=== PATIENT | male | born 1945 | race Caucasian/White ===

== ENCOUNTER 2017-06-26 11:11 | Emergency (ER) | payer OTHER ==
[2017-06-26 11:26] VITALS: TEMP 97.7; BMI 25.1
--- NOTE | 2017-06-26 12:26 | PDOC ---
History of Present Illness - General History Source: Patient Exam Limitations: No Limitations - History of Present Illness Initial Comments: 06/26/17 12:31 The patient is a 72 year old female with a significant PMH of HTN, hyperlipidemia, diabetes, CAD (s/p 4x stents), and past MO who presents to the emergency department with right wrist pain s/p mechanical fall approximately yesterday morning. The patient reports slipping and falling yesterday morning and landing on his right wrist, after which he developed pain and swelling. He reports going to Urgent Care and receiving a sling but was told to come to the ED for X-rays. He reports taking Tylenol to minimal relief. The patient denies hitting his head or LOC. The patient denies chest pain, shortness of breath, headache and dizziness. Denies fever, chills, nausea, vomit, diarrhea and constipation. Denies dysuria, frequency, urgency and hematuria. Allergies: NKA Past surgical history: Cardiac stent placement x4. Unspecified back and wrist orthopedic surgery. Social history: Former smoker. No reported alcohol or drug use. PCP: Dr. Roe Knapp <John Wu - Last Filed: 06/26/17 12:31> <Bridget Echeverria - Last Filed: 06/29/17 08:11> - General Chief Complaint: Injury Stated Complaint: FALL/ RT ARM PAIN Time Seen by Provider: 06/26/17 11:55 Past History <John Wu - Last Filed: 06/26/17 12:31> - Past Medical History Anemia: No Asthma: No Cancer: No Cardiac Disorders: Yes ([place] w/ 4 stents) COPD: No CHF: No Diabetes: Yes GI Disorders: No Disorders: No HTN: Yes Hypercholesterolemia: Yes Liver Disease: No Thyroid Disease: No - Surgical History Abdominal Surgery: No Cardiac Surgery: Yes (stent 03/2015) Lung Surgery: No Orthopedic Surgery: Yes (Back, wrist) - Immunization History Immunization Up to Date: Yes - Suicide/Smoking/Psychosocial Hx Smoking History: Never smoked Have you smoked in the past 12 months: No Number of Cigarettes Smoked Daily: 3 If you are a former smoker, when did you quit?: 12yrs Information on smoking cessation initiated: No 'Breaking Loose' booklet given: 03/28/15 Hx Alcohol Use: No Drug/Substance Use Hx: No Substance Use Type: None Hx Substance Use Treatment: No <Bridget Echeverria - Last Filed: 06/29/17 08:11> - Past Medical History Allergies/Adverse Reactions: Allergies Allergy/AdvReac Type Severity Reaction Status Date / Time No Known Allergies Allergy Verified 06/26/17 11:19 Home Medications: Ambulatory Orders Amlodipine Besylate 5 mg PO DAILY 11/25/15 Aspirin [ASA -] 81 mg PO DAILY 11/25/15 Atorvastatin Ca [Lipitor] 80 mg PO HS 11/25/15 Insulin (Novolog 70/30) [Novolog Mix 70/30 Vial] 20 ml SQ HS 11/25/15 Insulin Aspart Prot/Insuln Asp [Novolog Mix 70-30 Flexpen Syrn] 15 unit SQ AM Metoprolol Succinate [Toprol Xl -] 100 mg PO DAILY 11/25/15 Lisinopril [Prinivil] 5 mg PO DAILY 06/26/17 Prasugrel Hydrochloride [Effient -] 5 mg PO DAILY 06/26/17 Tramadol HCl 50 mg PO Q6H PRN #12 tablet MDD 4 tabs 06/26/17 Review of Systems - Review of Systems Able to Perform ROS?: Yes Comments:: 06/26/17 12:31 GENERAL/CONSTITUTIONAL: No fever or chills. No weakness. HEAD, EYES, EARS, NOSE AND THROAT: No change in vision. No ear pain or discharge. No sore throat. CARDIOVASCULAR: No chest pain or shortness of breath. RESPIRATORY: No cough, wheezing, or hemoptysis. GASTROINTESTINAL: No nausea, vomiting, diarrhea or constipation. GENITOURINARY: No dysuria, frequency, or change in urination. MUSCULOSKELETAL: (+) Right wrist pain and swelling. No neck or back pain. SKIN: No rash NEUROLOGIC: No headache, vertigo, loss of consciousness, or change in strength/ sensation. ENDOCRINE: No increased thirst. No abnormal weight change. HEMATOLOGIC/LYMPHATIC: No anemia, easy bleeding, or history of blood clots. ALLERGIC/IMMUNOLOGIC: No hives or skin allergy. <John Wu - Last Filed: 06/26/17 12:31> *Physical Exam - Vital Signs Last Vital Signs Temp Pulse Resp BP Pulse Ox 97.7 F 87 16 154/94 100 06/26/17 11:19 06/26/17 11:19 06/26/17 11:19 06/26/17 11:19 06/26/17 11:19 <John Wu - Last Filed: 06/26/17 12:31> - Vital Signs Last Vital Signs Temp Pulse Resp BP Pulse Ox 97.7 F 87 16 154/94 100 06/26/17 11:19 06/26/17 11:19 06/26/17 11:19 06/26/17 11:19 06/26/17 11:19 - Physical Exam Comments: GENERAL: Awake, alert, and fully oriented, in no acute distress HEAD: No signs of trauma EYES: PERRLA, EOMI, sclera anicteric, conjunctiva clear ENT: Auricles normal inspection, hearing grossly normal, nares patent, oropharynx clear without exudates. Moist mucosa EXTREMITIES: R wrist with edema, tenderness to the dorsal surface. Dec ROM due to pain. +Pain in the anatomic snuffbox. Remainder of extremities with normal range of motion, no edema. No clubbing or cyanosis. No cords, erythema, or tenderness NEUROLOGICAL: Cranial nerves II through XII grossly intact. Normal speech, normal gait SKIN: Warm, Dry, normal turgor, no rashes or lesions noted. <Bridget Echeverria - Last Filed: 06/29/17 08:11> Procedures - Splinting Splint Location: Right: Wrist Pre-Proc Neuro Vasc Exam: normal Hand-Made Type: orthoglass Splint Type: Yes: Volar Post-Proc Neuro Vasc Exam: normal Errol Bandage: 3" Sling: Yes Complications: No <Bridget Echeverria - Last Filed: 06/29/17 08:11> Medical Decision Making - Medical Decision Making Pt splinted for comfort. Recommended f/u in 1 week for repeat XR to r/o occult fx. <Bridget Echeverria - Last Filed: 06/29/17 08:11> *DC/Admit/Observation/Transfer - Attestations Scribe Attestion: 06/26/17 12:31 Documentation prepared by John Wu, acting as medical physics professor for Bridget Echeverria MD. <John Wu - Last Filed: 06/26/17 12:31> - Discharge Dispostion Admit: No <Bridget Echeverria - Last Filed: 06/29/17 08:11> Diagnosis at time of Disposition: Right wrist sprain Qualifiers: Encounter type: initial encounter Qualified Code(s): S63.501A - Unspecified sprain of right wrist, initial encounter - Discharge Dispostion Disposition: HOME Condition at time of disposition: Stable - Prescriptions Prescriptions: Tramadol HCl 50 mg PO Q6H PRN #12 tablet MDD 4 tabs PRN Reason: Pain - Referrals Referrals: Roe Knapp MD [Primary Care Provider] - - Patient Instructions Printed Discharge Instructions: DI for Wrist Sprain, How to Take Care of Your Splint Additional Instructions: Follow up with your physician, as you may need another x-ray in 1 week. Use splint as needed for pain. - Post Discharge Activity
[2017-06-26] MEDS ORDERED: traMADol HCL 50 MG TABLET PO ONE (12:29)
[2017-06-26] MEDS ORDERED: traMADol HCL 50 MG TABLET ONE (12:31)
[2017-06-26 14:33] VITALS: BP 142/75; PULSE 68
== END 2017-06-26 14:34 | disposition home or self-care (01) ==
LOC: JER 11:11
DX: E11.9 Type 2 diabetes mellitus without complications (principal); I25.10 Atherosclerotic heart disease of native coronary artery without angina pectoris; Z87.891 Personal history of nicotine dependence; I10 Essential (primary) hypertension; Z95.5 Presence of coronary angioplasty implant and graft; E78.00 Pure hypercholesterolemia, unspecified; S63.501A Unspecified sprain of right wrist, initial encounter; W18.39XA Other fall on same level, initial encounter; Y93.89 Activity, other specified; Y92.9 Unspecified place or not applicable; I25.2 Old myocardial infarction
CPT/HCPCS: 73090-TC-RT; 73110-TC-RT; 73130-TC-RT; 99282-25

== ENCOUNTER 2018-04-28 00:02 | Emergency (ER) | payer OTHER, BC | END 2018-04-28 01:34 | disposition left against medical advice (07) | LOC: JER 00:02 | DX: Z53.21 Procedure and treatment not carried out due to patient leaving prior to being seen by health care provider (principal) ==

== ENCOUNTER 2018-07-16 14:25 | Emergency (ER) | payer OTHER, BC ==
[2018-07-16 14:33] VITALS: BMI 25.0
[2018-07-16] MEDS ORDERED: ONDANSETRON 4 MG/2 ML VIAL IVPB ONE (15:00)
[2018-07-16] MEDS ORDERED: morphine SULFATE 4 MG/ML VIAL ONE ×2 (15:00→17:23)
[2018-07-16] MEDS ORDERED: morphine CARPU-JECT 4 MG/1 ML DISP.SYRIN IVPUSH ONE ×3 (15:00→17:22)
[2018-07-16] MEDS ORDERED: ONDANSETRON 4 MG/2 ML VIAL ONE ×2 (15:01→17:23)
--- NOTE | 2018-07-16 15:04 | PDOC ---
History of Present Illness - General Chief Complaint: Injury Stated Complaint: LEG PAIN Time Seen by Provider: 07/16/18 15:04 History Source: Patient Exam Limitations: No Limitations - History of Present Illness Initial Comments: 07/16/18 15:17 73 year old male with PMH HTN, IDDM, HLD, [place] with 4 stents (x2.5 years ago), on unknown blood thinner BIBA to ED for left leg pain s/p trip and fall on ice today. Pt denied prodromal symptoms. Pt denied head injury, LOC. Pt admitted to vomiting 4 times since the event. PCP: [facility] Past History - Past Medical History Allergies/Adverse Reactions: Allergies Allergy/AdvReac Type Severity Reaction Status Date / Time No Known Allergies Allergy Verified 07/16/18 14:31 Home Medications: Ambulatory Orders Amlodipine Besylate 5 mg PO DAILY 11/25/15 Aspirin [ASA -] 81 mg PO DAILY 11/25/15 Atorvastatin Ca [Lipitor] 80 mg PO HS 11/25/15 Insulin (Novolog 70/30) [Novolog Mix 70/30 Vial] 20 ml SQ HS 11/25/15 Insulin Aspart Prot/Insuln Asp [Novolog Mix 70-30 Flexpen Syrn] 15 unit SQ AM Metoprolol Succinate [Toprol Xl -] 100 mg PO DAILY 11/25/15 Lisinopril [Prinivil] 5 mg PO DAILY 06/26/17 Prasugrel Hydrochloride [Effient -] 5 mg PO DAILY 06/26/17 Tramadol HCl 50 mg PO Q6H PRN #12 tablet MDD 4 tabs 06/26/17 Anemia: No Asthma: No Cancer: No Cardiac Disorders: Yes ([place] w/ 4 stents) COPD: No CHF: No Diabetes: Yes GI Disorders: No Disorders: No HTN: Yes Hypercholesterolemia: Yes Liver Disease: No Thyroid Disease: No - Surgical History Abdominal Surgery: No Cardiac Surgery: Yes (stent 03/2015) Lung Surgery: No Orthopedic Surgery: Yes (Back, wrist) - Immunization History Immunization Up to Date: Yes - Suicide/Smoking/Psychosocial Hx Smoking History: Never smoked Have you smoked in the past 12 months: No Number of Cigarettes Smoked Daily: 3 If you are a former smoker, when did you quit?: 12yrs 'Breaking Loose' booklet given: 03/28/15 Hx Alcohol Use: No Drug/Substance Use Hx: No Substance Use Type: None Hx Substance Use Treatment: No Review of Systems - Review of Systems Able to Perform ROS?: Yes Comments:: 07/16/18 15:24 General: denied fever, chills, night sweats, generalized weakness. HEENT: denied sore throat, rhinorrhea, ear pain. Neck: denied neck pain. Heart: denied chest pain, palpitations, syncope, diaphoresis. Respiratory: denied shortness of breath, cough, sputum production, hemoptysis. Abdomen: denied abdominal pain, nausea, vomiting, diarrhea, constipation, blood in stool. : denied dysuria, increased urinary frequency, hematuria, urinary incontinence , flank pain. Back: denied back pain. Musculoskeletal: admitted to left leg pain. Neurological: denied headache, dizziness, numbness, tingling, weakness. Skin: denied rash, laceration, abrasion. *Physical Exam - Vital Signs Last Vital Signs Temp Pulse Resp BP Pulse Ox 98.1 F 66 18 166/78 100 07/16/18 14:32 07/16/18 14:32 07/16/18 14:32 07/16/18 14:32 07/16/18 14:32 - Physical Exam Comments: 07/16/18 15:24 Constitutional: Well-nourished, Well-developed, appearing stated age. HEENT: head is normocephalic, atraumatic. no scalp hematomas. no facial bone tenderness. EOMI. PERRLA. Neck: supple. Full ROM. Heart: regular rhythm. no murmurs, rubs or gallops. Lungs: clear to auscultation bilaterally. no crackles, rhonchi or wheezing. no stridor. Abdomen: soft, nontender. normal bowel sounds. no rebound, guarding, masses. Back: no midline c-spine, t-spine or L-spine tendereness to palpation. no paraspinal tenderness. Extremities: left leg shortened and externally rotated. pain to palpation of left upper anterior leg. Peripheral pulses intact. No lower extremity edema. capillary refill <2 seconds bilateral LE. equal warmth to bilateral LE. Neurological: CN 2-12 grossly intact. Moves all four extremities. Psych: awake, alert, oriented x3. Follows commands. Answers questions appropriately. Moderate Sedation - Procedure Monitoring Vital Signs: Procedure Monitoring Vital Signs Temperature 98.1 F 07/16/18 14:32 Pulse Rate 66 07/16/18 14:32 Respiratory Rate 18 07/16/18 14:32 Blood Pressure 166/78 07/16/18 14:32 O2 Sat by Pulse Oximetry (%) 100 07/16/18 14:32 ED Treatment Course - LABORATORY CBC & Chemistry Diagram: 07/16/18 15:00 07/16/18 15:00 Medical Decision Making - Medical Decision Making 07/16/18 15:26 73 year old male with above PMH presented to ED for left leg pain s/p slip and fall on ice today. Pt denied head injury but has vomited 4X since the event. Initial Vital Signs Temp Pulse Resp BP Pulse Ox 98.1 F 66 18 166/78 100 07/16/18 14:32 07/16/18 14:32 07/16/18 14:32 07/16/18 14:32 07/16/18 14:32 Afebrile. No tachycardia. No tachypnea. Mild hypertension. No hypoxia on room air. o Labs ordered: CBC, CMP, coags, CK, troponin c Imaging ordered: left hip XR g Medications ordered: morphine 4 mg, zofran 4 mg EKG performed at 1450: rate 60, regular rhythm, left axis, normal intervals, no acute ST changes. 07/16/18 15:38 Pt reported increasing pain. g Medications ordered: morphine 2 mg 07/16/18 15:43 CBC WBC 9.6 K/mm3 (4.0-10.0) 07/16/18 15:00 RBC 4.43 M/mm3 (4.00-5.60) 07/16/18 15:00 Hgb 13.6 GM/dL (11.7-16.9) 07/16/18 15:00 Hct 39.1 % (35.4-49) 07/16/18 15:00 MCV 88.1 fl (80-96) 07/16/18 15:00 MCH 30.7 pg (25.7-33.7) 07/16/18 15:00 MCHC 34.8 g/dl (32.0-35.9) 07/16/18 15:00 RDW 13.8 % (11.9-15.9) 07/16/18 15:00 Plt Count 163 K/MM3 (134-434) 07/16/18 15:00 MPV 10.1 fl (7.5-11.1) 07/16/18 15:00 Absolute Neuts (auto) 6.1 K/mm3 (1.5-8.0) 07/16/18 15:00 Neutrophils % 63.5 % (42.8-82.8) 07/16/18 15:00 Lymphocytes % 25.6 % (8-40) D 07/16/18 15:00 Monocytes % 9.3 % (3.8-10.2) 07/16/18 15:00 Eosinophils % 0.8 % (0-4.5) 07/16/18 15:00 Basophils % 0.8 % (0-2.0) 07/16/18 15:00 Nucleated RBC % 0 % (0-0) 07/16/18 15:00 No leukocytosis. No anemia. CMP Sodium 138 mmol/L (136-145) 07/16/18 15:00 Potassium 4.2 mmol/L (3.5-5.1) 07/16/18 15:00 Chloride 107 mmol/L (98-107) 07/16/18 15:00 Carbon Dioxide 22 mmol/L (21-32) 07/16/18 15:00 Anion Gap 9 MMOL/L (8-16) 07/16/18 15:00 BUN y 42 mg/dL (7-18) H 07/16/18 15:00 Creatinine y 1.8 mg/dL (0.55-1.3) H 07/16/18 15:00 Creat Clearance w eGFR 37.38 (>60) 07/16/18 15:00 Random Glucose 177 mg/dL (74-106) H 07/16/18 15:00 Calcium 8.5 mg/dL (8.5-10.1) 07/16/18 15:00 Total Bilirubin 0.3 mg/dL (0.2-1) 07/16/18 15:00 AST 24 U/L (15-37) 07/16/18 15:00 ALT 27 U/L (13-61) 07/16/18 15:00 Alkaline Phosphatase 76 U/L (45-117) 07/16/18 15:00 Total Protein 7.5 g/dl (6.4-8.2) 07/16/18 15:00 Albumin 3.8 g/dl (3.4-5.0) 07/16/18 15:00 Cr at baseline. No electrolyte abnormalities. No transaminitis. 07/16/18 16:[address] head report: no acute intracranial pathology. sinus disease. 07/16/18 17:15 c CXR report: no acute intrathoracic pathology c CT cervical spine report: no acute fracture c Left hip/femur XR: no acute fracture/dislocation Pt clinically in pain and displays possible femur fracture. upper left leg tense. c Imaging ordered: CT lower extremity with contrast o - Cr 1.8 g - Normal saline ordered 07/16/18 17:22 Pt vomiting at bedside with increasing pain after examination. g Medications ordered: zofran 4 mg, morphine 4 mg o CK 555 o CKMB 5.6 g - Normal saline ordered prior 07/16/18 18:53 I spoke with ortho condenser tube tender, Dr. Husain, who stated he viewed the CT images. He stated he believes there is a hematoma to the left upper leg, and no fracture. No vascular condenser tube tender, pt will need to be transferred. r [place] needle used - compartment pressure = 8. Pt signed out to Dr. Lopez - Pending CT report of left extremity. - Pending transfer *DC/Admit/Observation/Transfer Diagnosis at time of Disposition: Left leg swelling, Left leg injury, Hematoma of left lower extremity - Discharge Dispostion Disposition: TRANSFER ACUTE CARE/OTHER HOSP Condition at time of disposition: Guarded - Referrals Referrals: Luis Fernando Araya MD [Primary Care Provider] - - Patient Instructions - Post Discharge Activity
[2018-07-16 15:15] LABS: BASO % 0.8 % (0-2.0); EOS % 0.8 % (0-4.5); HEMATOCRIT 39.1 % (35.4-49); HEMOGLOBIN 13.6 GM/dL (11.7-16.9); LYMPH % 25.6 % (8-40); MCH 30.7 pg (25.7-33.7); MCHC 34.8 g/dl (32.0-35.9); MEAN CELL VOLUME 88.1 fl (80-96); MEAN PLT VOLUME 10.1 fl (7.5-11.1); MONO % 9.3 % (3.8-10.2); NEUT % 63.5 % (42.8-82.8); PLATELET COUNT 163 K/MM3 (134-434); RBC 4.43 M/mm3 (4.00-5.60); RDW 13.8 % (11.9-15.9); WHITE BLOOD COUNT 9.6 K/mm3 (4.0-10.0)
[2018-07-16 15:28] LABS: INR 1.06 (0.83-1.09); PROTHROMBIN TIME (PATIENT) 12.5 SEC (9.7-13.0)
[2018-07-16] MEDS ORDERED: MORPHINE SULFATE 2 MG/ML VIAL ONE (15:38)
[2018-07-16 15:41] LABS: ALBUMIN 3.8 g/dl (3.4-5.0); ALK PHOS 76 U/L (45-117); ANION GAP 9 MMOL/L (8-16); BILIRUBIN,TOTAL 0.3 mg/dL (0.2-1); BLOOD UREA NITROGEN 42 mg/dL (7-18); CALCIUM 8.5 mg/dL (8.5-10.1); CHLORIDE 107 mmol/L (98-107); CO2 22 mmol/L (21-32); CREATININE 1.8 mg/dL (0.55-1.3); GLUCOSE,RANDOM 177 mg/dL (74-106); POTASSIUM 4.2 mmol/L (3.5-5.1); SGOT/AST 24 U/L (15-37); SGPT/ALT 27 U/L (13-61); SODIUM 138 mmol/L (136-145); TOT PROT 7.5 g/dl (6.4-8.2)
[2018-07-16] MEDS ORDERED: ONDANSETRON 4 MG/2 ML VIAL IVPUSH ONE (17:21)
[2018-07-16] MEDS ORDERED: SODIUM CHLORIDE 1,000 ML IV STA (17:43)
--- NOTE | 2018-07-16 17:49 | PDOC ---
Attending Attestation - Resident Resident Name: Susanne Leahy - ED Attending Attestation I have performed the following: I have examined & evaluated the patient, The case was reviewed & discussed with the resident, I agree w/resident's findings & plan, Exceptions are as noted - HPI HPI: 07/16/18 17:58 The patient is a 73 year old male, with a significant PMH of HTN, hyperlipidemia , IDDM, [place] (s/p 4x stents), and past SC who was BIBA to the emergency department for evaluation of severe left leg pain, s/p falling on the ice outside. Denies head pain and LOC. The patient denies chest pain, shortness of breath, headache and dizziness. Denies fever, chills, nausea, vomit, diarrhea and constipation. Denies dysuria, frequency, urgency and hematuria. Allergies: NKA Past surgical history: Cardiac stent placement x4. Unspecified back and wrist orthopedic surgery. Social history: Past smoker. PCP: Dr. Knapp - Physicial Exam PE: 07/16/18 17:58 "GENERAL: Awake, alert, and fully oriented, in no acute distress. HEAD: No signs of trauma EYES: PERRLA, EOMI, sclera anicteric, conjunctiva clear ENT: Auricles normal inspection, hearing grossly normal, nares patent, oropharynx clear without exudates. Moist mucosa NECK: Nontender, no stepoffs, Normal ROM, supple, no lymphadenopathy, JVD, or masses LUNGS: Breath sounds equal, clear to auscultation bilaterally. No wheezes, and no crackles HEART: Regular rate and rhythm, normal S1 and S2, no murmurs, rubs or gallops ABDOMEN: Soft, nontender, normoactive bowel sounds. No guarding, no rebound. No masses EXTREMITIES: + L thigh with tense and tender anterior compartment, + distal pulses NEUROLOGICAL: Cranial nerves II through XII intact. 5/5 strength and sensation in all extremities, Normal speech, normal gait, normal cerebellar function SKIN: Warm, Dry, normal turgor, no rashes or lesions noted. - Critical Care Time Total Critical Care Time: 120 Critical Care Statement: The care of this patient involved high complexity decision making to prevent further life threatening deterioration of the patient 's condition and/or to evaluate & treat vital organ system(s) failure or risk of failure. - Medical Decision Making 07/16/18 17:48 73 M with L leg injury after fall. Pt with tense compartments but neurovascularly intact distally. Will r/o acute fx. Also consider vascular injury. - XR without acute fx - CTA L leg Cr 1.8 noted, OK to administer IV contrast Pt counseled on theoretical risk of contrast nephropathy. Gave verbal consent for CTA. 07/16/18 19:13 [place] pressure obtained - 7 mm Hg Ortho consulted. No vascular consult available. If ortho unable to evaluate pt, will likely transfer CTA shows extravasation from femoral artery No vascular surgeon available Pt transferred to [facility] for vascular surgery eval
[2018-07-16 20:19] VITALS: PULSE 82
--- NOTE | 2018-07-16 20:44 | PDOC ---
*Physical Exam - Vital Signs Last Vital Signs Temp Pulse Resp BP Pulse Ox 97.9 F 82 18 141/55 L 98 07/16/18 20:18 07/16/18 20:18 07/16/18 20:18 07/16/18 20:18 07/16/18 20:18 ED Treatment Course - LABORATORY CBC & Chemistry Diagram: 07/16/18 15:00 07/16/18 15:00 - ADDITIONAL ORDERS Additional order review: Laboratory Results 07/16/18 07/16/18 07/16/18 19:34 15:00 15:00 PT with INR 12.50 INR 1.06 Sodium Potassium Chloride Carbon Dioxide Anion Gap BUN Creatinine Creat Clearance w eGFR POC Glucometer 201 Random Glucose Calcium Total Bilirubin AST ALT Alkaline Phosphatase Creatine Kinase Creatine Kinase Index CK-MB (CK-2) Troponin I Total Protein Albumin Blood Type AB POSITIVE Antibody Screen Negative 07/16/18 15:00 PT with INR INR Sodium 138 Potassium 4.2 Chloride 107 Carbon Dioxide 22 Anion Gap 9 BUN 42 H Creatinine 1.8 H Creat Clearance w eGFR 37.38 POC Glucometer Random Glucose 177 H Calcium 8.5 Total Bilirubin 0.3 AST 24 ALT 27 Alkaline Phosphatase 76 Creatine Kinase 555 H Creatine Kinase Index 1.0 CK-MB (CK-2) 5.6 H Troponin I < 0.02 Total Protein 7.5 Albumin 3.8 Blood Type Antibody Screen 07/16/18 07/16/18 19:34 15:00 RBC 4.43 MCV 88.1 MCHC 34.8 RDW 13.8 MPV 10.1 Neutrophils % 63.5 Lymphocytes % 25.6 D Monocytes % 9.3 Eosinophils % 0.8 Basophils % 0.8 POC Glucometer 201 - Medications Given in the ED: ED Medications Discontinued Medications Generic Name Dose Route Start Last Admin Trade Name Freq PRN Reason Stop Dose Admin Sodium Chloride 1,000 mls @ 1,000 mls/hr 07/16/18 17:43 07/16/18 18:48 Normal Saline - IV 07/16/18 18:42 1,000 mls/hr ASDIR STA Administration Morphine Sulfate 4 mg 07/16/18 15:00 07/16/18 15:04 Morphine Injection - IVPUSH 07/16/18 15:01 4 mg ONCE ONE Administration Morphine Sulfate 2 mg 07/16/18 15:37 02/20/19 15:46 Morphine Injection - IVPUSH 07/16/18 15:38 2 mg ONCE ONE Administration Morphine Sulfate 4 mg 07/16/18 17:22 07/16/18 18:10 Morphine Injection - IVPUSH 07/16/18 17:23 4 mg ONCE ONE Administration Ondansetron HCl 4 mg 07/16/18 15:00 07/16/18 15:04 Zofran Injection IVPB 07/16/18 15:01 4 mg ONCE ONE Administration Ondansetron HCl 4 mg 07/16/18 17:21 07/16/18 18:10 Zofran Injection IVPUSH 07/16/18 17:22 4 mg ONCE ONE Administration Medical Decision Making - Medical Decision Making Patient signed out to me from day team. In short - 73 year old male with PMH HTN, IDDM, HLD, [place] with 4 stents (x2.5 years ago), on unknown blood thinner BIBA to ED for left leg pain s/p trip and fall on ice today. Pt denied prodromal symptoms. Pt denied head injury, LOC. Pt admitted to vomiting 4 times since the event. Large workup in ER came back mostly negative. Leg CTA results: There is a focal area of arterial extravasation involving the muscular branch of the vastus intermedius muscle, mid left thigh. Ortho was paged and said they are not comfortable dealing with this patient because he needs a vascular surgeon. Pressure of compartment measured at bedside to be 8. No concern for compartment syndrome at the present time. We do not have vascular surgery paraprofessional interpreter so will transfer patient to [place]. Dr. Boucher - Vascular surgeon has been informed about the patient and accepts care. Requests transfer to ER. Dr. Bryan bower is the ER attending who received report about the patient. Patient notified for transfer and will be sent to [place]. - EMS took patient at 10 pm *DC/Admit/Observation/Transfer Diagnosis at time of Disposition: Left leg swelling, Left leg injury, Hematoma of left lower extremity - Discharge Dispostion Disposition: TRANSFER ACUTE CARE/OTHER HOSP Condition at time of disposition: Guarded Decision to Admit order: No - Referrals Referrals: Luis Fernando Araya MD [Primary Care Provider] - - Patient Instructions - Post Discharge Activity
[2018-07-16 21:38] VITALS: BP 127/76; TEMP 98.3
[2018-07-16] MEDS ORDERED: SODIUM CHLORIDE 0.9% 500 ML INFUS.BAG IV ONE (21:46)
--- NOTE | 2018-07-17 11:58 | EKG ---
Test Reason : Blood Pressure : / mmHG Vent. Rate : 060 BPM Atrial Rate : 060 BPM P-R Int : 184 ms QRS Dur : 076 ms QT Int : 438 ms P-R-T Axes : 048 -25 041 degrees QTc Int : 438 ms POOR DATA QUALITY, INTERPRETATION MAY BE ADVERSELY AFFECTED NORMAL SINUS RHYTHM NORMAL ECG WHEN COMPARED WITH ECG OF 12-DEC-2015 04:19, NO SIGNIFICANT CHANGE WAS FOUND Confirmed by LOKESH ACEVEDO, ALY ([id number]) on 07/17/2018 11:57:52 AM Referred By: Confirmed By:ALY CAMPA MD
== END 2018-07-16 22:16 | disposition short-term general hospital (02) ==
LOC: JER 14:25
PROC: 3E033NZ Introduction of Analgesics, Hypnotics, Sedatives into Peripheral Vein, Percutaneous Approach (ICD-10-PCS; principal; 2018-07-16)
PROC: 3E033GC Introduction of Other Therapeutic Substance into Peripheral Vein, Percutaneous Approach (ICD-10-PCS; 2018-07-16)
PROC: 3E0337Z Introduction of Electrolytic and Water Balance Substance into Peripheral Vein, Percutaneous Approach (ICD-10-PCS; 2018-07-16)
DX: M79.89 Other specified soft tissue disorders (principal); S80.12XA Contusion of left lower leg, initial encounter; W00.0XXA Fall on same level due to ice and snow, initial encounter; Y93.89 Activity, other specified; Y92.89 Other specified places as the place of occurrence of the external cause
CPT/HCPCS: 36415; 70450-TC; 71045-TC-FY; 72125-TC; 73523-TC-FY; 73552-TC-LT-FY; 73706-TC-RT; 80053; 82550; 82553; 82962; 84484; 85025; 85610; 86850; 86900; 86901; 93005; 93010; 99284-25; J7030